=== PATIENT | female | born 1995 | race African-American/Black ===

== ENCOUNTER 2017-08-23 13:18 | Emergency (ER) | payer BC, OTHER ==
[2017-08-23 14:20] VITALS: BP 128/87
== END 2017-08-23 16:25 | disposition home or self-care (01) ==
LOC: ED 13:18
DX: N76.0 Acute vaginitis (principal)
CPT/HCPCS: 82962; 87491; 87591

== ENCOUNTER 2018-06-09 09:35 | Emergency (ER) | payer BC, OTHER ==
[2018-06-09 09:48] VITALS: BP 130/79; Ht 172.7 cm
== END 2018-06-09 11:54 | disposition home or self-care (01) ==
LOC: ED 09:35
DX: N39.0 Urinary tract infection, site not specified (principal)

== ENCOUNTER 2018-11-02 15:25 | Emergency (ER) | payer BC, OTHER ==
[~2018-11-02] VITALS: Ht 175.3 cm; Wt 64.2 kg
[2018-11-02 15:35] VITALS: Ht 175.3 cm; Wt 64.2 kg
[2018-11-02 16:16] LABS: BASOPHIL % 0.9 % (0-2); PLATELET COUNT 340 x10^3mcL (130-400); RED CELL DISTRIBUTION WIDTH 12.8 % (11.5-14.5)
[2018-11-02 16:49] VITALS: BP 123/79
== END 2018-11-02 16:49 | disposition home or self-care (01) ==
LOC: ED 15:25
PROVIDERS: Emergency Medicine
DX: N92.0 Excessive and frequent menstruation with regular cycle (principal); M41.9 Scoliosis, unspecified
CPT/HCPCS: 36415

== ENCOUNTER 2019-05-15 08:10 | Emergency (ER) | payer BC, OTHER ==
[~2019-05-15] VITALS: Ht 175.3 cm; Wt 64.0 kg
[2019-05-15 08:14] VITALS: BP 112/72; Ht 175.3 cm; Wt 64.0 kg
== END 2019-05-15 09:05 | disposition home or self-care (01) ==
LOC: ED 08:10
DX: S80.862A Insect bite (nonvenomous), left lower leg, initial encounter (principal); L03.116 Cellulitis of left lower limb; W57.XXXA Bitten or stung by nonvenomous insect and other nonvenomous arthropods, initial encounter; Y93.89 Activity, other specified; Y92.89 Other specified places as the place of occurrence of the external cause; Y99.8 Other external cause status

== ENCOUNTER 2019-07-21 17:51 | Emergency (ER) | payer BC, OTHER ==
[~2019-07-21] VITALS: Ht 175.3 cm; Wt 64.9 kg
[2019-07-21 18:04] VITALS: Ht 175.3 cm; Wt 64.9 kg
[2019-07-21 21:06] VITALS: BP 137/88
[2019-07-23 07:10] LABS: RAPID PLASMA REAGIN Non Reactive (Non Reactive)
== END 2019-07-21 21:00 | disposition home or self-care (01) ==
LOC: ED 17:51
PROVIDERS: Emergency Medicine
DX: B37.3 Candidiasis of vulva and vagina (principal); M41.9 Scoliosis, unspecified
CPT/HCPCS: 87491; 87591